=== PATIENT | male | born 1955 | race Caucasian/White ===

== ENCOUNTER 2016-07-09 12:10 | Inpatient (IN) | payer OTHER ==
[2016-07-09 12:25] VITALS: BMI 28.5
--- NOTE | 2016-07-09 15:23 | HP ---
Admission [facility] Chief Complaint: I need to go to rehab before my drinking becomes an addiction. Allergies/Adverse Reactions: Allergies Allergy/AdvReac Type Severity Reaction Status Date / Time No Known Allergies Allergy Verified 07/09/16 13:00 History of Present Illness: pt is a 60yr old male with a history of alcohol abuse seeking rehab for tx. pt is receiving Epclusa for hep c tx. pt on a mmtp program last dose today with 65mg verification done. Exam Limitations: No Limitations - Ebola screening Have you traveled outside of the country in the last 21 days: No Have you had contact with anyone from an Ebola affected area: No Have you been sick,other than usual withdrawal symptoms: No Do you have a fever: No - Review of Systems Constitutional: No Symptoms Reported EENT: reports: No Symptoms Reported Respiratory: reports: No Symptoms reported Cardiac: reports: No Symptoms Reported GI: reports: No Symptoms Reported : reports: No Symptoms Reported Musculoskeletal: reports: No Symptoms Reported Integumentary: reports: No Symptoms Reported Neuro: reports: No Symptoms reported Endocrine: reports: No Symptoms Reported Hematology: reports: No Symptoms Reported Psychiatric: reports: Judgement Intact, Mood/Affect Appropiate, Orientated x3, Agitated, Anxious Other Systems: Reviewed and Negative Patient History - Patient Medical History Hx Anemia: No Hx Asthma: No Hx Chronic Obstructive Pulmonary Disease (COPD): No Hx Cancer: No Hx Cardiac Disorders: No Hx Congestive Heart Failure: No Hx Hypertension: No Hx Hypercholesterolemia: No Hx Pacemaker: No HX Cerebrovascular Accident: No Hx Seizures: No Hx Dementia: No Hx Diabetes: No Hx Gastrointestinal Disorders: No Hx Liver Disease: No Hx Genitourinary Disorders: No Hx Sexually Transmitted Disorders: No Hx Renal Disease (ESRD): No Hx Thyroid Disease: No Hx Human Immunodeficiency Virus (HIV): No (negative) Hx Hepatitis C: Yes (currently on treatment.) Hx Depression: Yes Hx Suicide Attempt: No (denies) Hx Bipolar Disorder: Yes Hx Schizophrenia: No - Patient Surgical History Past Surgical History: Yes Hx Orthopedic Surgery: Yes (40yr ago torn a shoulder) - PPD History Previous Implant?: Yes Documented Results: Negative w/o proof PPD to be Administered?: Yes - Reproductive History Patient is a Female of Child Bearing Age (11 -55 yrs old): No - Smoking Cessation Smoking history: Current every day smoker Have you smoked in the past 12 months: Yes Aproximately how many cigarettes per day: 3 Hx Chewing Tobacco Use: No Initiated information on smoking cessation: Yes 'Breaking Loose' booklet given: 07/09/16 - Substance & Tx. History Hx Alcohol Use: Yes Hx Substance Use: No Substance Use Type: Alcohol - Substances Abused Alcohol Route: Oral Frequency: 1-2 times per week Amount used: couple of beers Age of first use: 18 Date of Last Use: 06/13/16 Family Disease History - Family Disease History Family History: Denies Admission Physical Exam [facility] - Vital Signs Vital Signs: Vital Signs - 24 hr 07/09/16 12:18 Temperature 97.8 F Pulse Rate 68 Respiratory 18 Rate Blood Pressure 131/80 - Physical General Appearance: Yes: Within Normal Limits, Appropriately Dressed HEENTM: Yes: Normal Voice Respiratory: Yes: Lungs Clear, Normal Breath Sounds, No Respiratory Distress Neck: Yes: No masses,lesions,Nodules Breast: Yes: Within Normal Limits Cardiology: Yes: Regular Rhythm, Regular Rate, S1, S2 Abdominal: Yes: Normal Bowel Sounds, Non Tender, Soft Genitourinary: Yes: Within Normal Limits Back: Yes: Normal Inspection Musculoskeletal: Yes: full range of Motion Extremities: Yes: Normal Capillary Refill, Non-Tender, Tremors Neurological: Yes: Fully Oriented, Alert, Normal Response Integumentary: Yes: Normal Color Lymphatic: Yes: Within Normal Limits - Diagnostic (1) Alcohol abuse Current Visit: Yes Status: Chronic (2) Cocaine dependence Current Visit: Yes Status: Chronic Qualifiers: Substance use status: uncomplicated Qualified Code(s): F14.20 - Cocaine dependence, uncomplicated (3) Hepatitis C Current Visit: Yes Status: Chronic Qualifiers: Viral hepatitis chronicity: chronic Hepatic coma status: without hepatic coma Qualified Code(s): B18.2 - Chronic viral hepatitis C (4) Methadone maintenance therapy patient Current Visit: Yes Status: Chronic Comment: received his last dose of methadone today. verification done. Cleared for Admission [facility] - Detox or Rehab [facility] Level of Care: Medically Managed Claeared for Rehab Admission: Yes [facility] Breath Alcohol Content Breath Alcohol Content: 0 Urine Drug Screen - Results Drug Screen Negative: No Urine Drug Screen Results: TRACEY-Cocaine, BZO-Benzodiazepines, MTD-Methadone, TCA- Tricyclic Antidepress
[2016-07-09] MEDS ORDERED: MAGNESIUM HYDROX 2400MG/30ML ORAL SUSPENSION 30 ML CUP PO PRN (15:31)
[2016-07-09] MEDS ORDERED: diphenhydrAMINE HCL 50 MG CAPSULE PO PRN (15:31)
[2016-07-09] MEDS ORDERED: P-EPHED 60MG/TRIPROLIDI 2.5MG TABLET PO PRN (15:31)
[2016-07-09] MEDS ORDERED: MENTHOL/PHENOL 1 EACH UD MM PRN (15:31)
[2016-07-09] MEDS ORDERED: LOPERAMIDE HCL 2 MG CAPSULE PO PRN (15:31)
[2016-07-09] MEDS ORDERED: MAG HYDROX/AL HYDROX/SIMETH 30 ML UNIT-DOSE CUP PO PRN (15:31)
[2016-07-09] MEDS ORDERED: MAGNESIUM CITRATE 300 ML BOTTLE PO PRN (15:31)
[2016-07-09] MEDS ORDERED: guaiFENesin/D-METHORPHAN HB 10 ML UNIT-DOSE CUPS PO PRN (15:31)
[2016-07-09] MEDS ORDERED: NICOTINE POLACRILEX 4 MG GUM BC PRN (15:31)
[2016-07-09] MEDS ORDERED: hydrOXYzine PAMOATE 50 MG CAPSULE (FP) PO PRN (15:31)
[2016-07-09 19:10] LABS: MCH 28.3 pg (25.7-33.7); MCHC 33.2 g/dl (32.0-35.9); MEAN CELL VOLUME 85.4 fl (80-96); MEAN PLT VOLUME 8.9 fl (7.5-11.1); PLATELET COUNT 127 K/MM3 (134-434); RDW 14.4 % (11.9-15.9); WHITE BLOOD COUNT 7.7 K/mm3 (4.0-10.0)
[2016-07-09 19:20] LABS: URINE APPEARANCE CLEAR; URINE BILIRUBIN NEGATIVE (NEGATIVE); URINE BLOOD NEGATIVE (NEGATIVE); URINE COLOR YELLOW; URINE GLUCOSE (UA) NEGATIVE (NEGATIVE); URINE KETONE NEGATIVE (NEGATIVE); URINE LEUK ESTERASE NEGATIVE (NEGATIVE); URINE NITRITE NEGATIVE (NEGATIVE); URINE PROTEIN NEGATIVE (NEGATIVE); URINE UROBILINOGEN 2.0 E.U/dl E.U./dl (0.2-1.0)
[2016-07-09 19:22] LABS: ALBUMIN 3.8 g/dl (3.4-5.0); ALK PHOS 114 U/L (45-117); ANION GAP 4 (8-16); BILIRUBIN,TOTAL 0.4 mg/dL (0.2-1.0); CALCIUM 8.9 mg/dL (8.5-10.1); CO2 33 mmol/L (21-32); CREATININE 0.8 mg/dL (0.7-1.3); GLUCOSE,RANDOM 78 mg/dL (74-106); SGOT/AST 52 U/L (15-37); SGPT/ALT 44 U/L (12-78); TOT PROT 8.5 g/dl (6.4-8.2)
[2016-07-09] MEDS: hydrOXYzine HCL 25 MG TABLET (FP) PO SCH (21:39)
[2016-07-09] MEDS: THIAMINE HCL 100 MG TABLET (FP) PO SCH (21:39)
[2016-07-09] MEDS: PATIENT'S OWN MEDICATION (NON-FORMULARY) (Sofosbuvir/Velpatasvir [Epclusa 400 Mg-100 Mg Ta PO SCH (21:39)
[2016-07-10] MEDS ORDERED: METHADONE HCL 5 MG TABLET ONE (03:11)
[2016-07-10] MEDS ORDERED: METHADONE HCL 10 MG TABLET ONE (03:11)
[2016-07-10] MEDS ORDERED: METHADONE HCL 40 MG DISPERSABLE TABLET ONE (03:11)
[2016-07-10] MEDS ORDERED: METHADONE HCL 10 MG TABLET PO SCH (06:00)
[2016-07-10] MEDS: METHADONE 40 MG, METHADONE 20 MG, METHADONE 5 MG PO SCH (06:10)
[2016-07-10] MEDS: PRENATAL VITAMINS W/ FOLIC ACID TABLET (FP) PO SCH (09:59)
[2016-07-10] MEDS: hydrOXYzine HCL 25 MG TABLET (FP) PO SCH ×2 (09:59→21:29)
[2016-07-10] MEDS: NICOTINE 21 MG/24 HOURS TOPICAL PATCH TD SCH (10:01)
[2016-07-10] MEDS ORDERED: GABAPENTIN 300 MG CAPSULE (FP) PO SCH (12:00)
--- NOTE | 2016-07-10 13:53 | HP ---
Psychiatrist Admission - Data Date of interview: 07/10/16 Admission source: [facility] Identifying data: This is the first 5n inpatient rehabilitation admission for this 60 year old single male afther of of one 27 year old, who is unemployed and currently homeless. Medical History: Liver Cirrhosis, smokes cigarettes 3-4 a day, on MMTP 65 mg/ daily. Psychiatric History: Patient reports has been feeling depressed, lonely since he his mother and his mother's partner 2 months ago, he was recommended at his methadone clinic to see a psychiatrist, after evaluation patient reports he was started Gabapentin 300 mg po tid, Atarax 25 mg po bid, Lexapro 10 mg hs and some medications for insomnia he can't recall, reports no history of psychiatic hospitalizations, after his loss he became very depressed and hopeless. Physical/Sexual Abuse/Trauma History: Denies history of sexual, physical and verbal abuse. Vital Signs: Vital Signs - 24 hr 07/10/16 07/10/16 07/10/16 00:33 03:30 06:59 Temperature 97.8 F Pulse Rate 58 L Respiratory 18 18 18 Rate Blood Pressure 123/74 Allergies/Adverse Reactions: Allergies Allergy/AdvReac Type Severity Reaction Status Date / Time No Known Allergies Allergy Verified 07/09/16 13:00 Date of last physical exam: 07/09/16 Concur with the findings of this exam: Yes - Substance Abuse/Tx History Hx Alcohol Use: Yes (a couple of beers 2-3 times a week) Hx Substance Use: Yes Substance Use Type: Cocaine ($20 daily) Hx Substance Use Treatment: Yes - Admission Criteria Previous failed treatment: Yes Poor recovery environment: Yes Comorbidities: Yes Lacks judgement: Yes Mental Status Exam - Mental Status Exam Alert and Oriented to: Time, Place, Person Cognitive Function: Grossly Intact Patient Appearance: Well Groomed Mood: Depressed, Sad Affect: Appropriate, Mood Congruent Patient Behavior: Crying Speech Pattern: Clear Voice Loudness: Normal Thought Process: Goal Oriented Thought Disorder: Not Present Hallucinations: Denies Suicidal Ideation: Denies Homicidal Ideation: Denies Insight/Judgement: Fair Sleep: Poorly, Difficulty falling asleep Appetite: Fair Muscle strength/Tone: Normal Gait/Station: Normal Psychiatric Findings - Problem List ([place] 1, 2,3) (1) Alcohol abuse Current Visit: Yes Status: Chronic (2) Cocaine dependence Current Visit: Yes Status: Chronic Qualifiers: Substance use status: uncomplicated Qualified Code(s): F14.20 - Cocaine dependence, uncomplicated (3) Methadone maintenance therapy patient Current Visit: Yes Status: Chronic Comment: received his last dose of methadone today. verification done. (4) Bereavement Current Visit: Yes Status: Acute (5) Depressive disorder Current Visit: Yes Status: Acute - Initial Treatment Plan Initial Treatment Plan: Will contiue Gabapentin and Lexapro, will add Belsorma for insomnia(sie-effects/benefits discossed), monitor progress as needed.
--- NOTE | 2016-07-10 15:38 | EKG ---
Test Reason : Blood Pressure : / mmHG Vent. Rate : 051 BPM Atrial Rate : 051 BPM P-R Int : 158 ms QRS Dur : 092 ms QT Int : 474 ms P-R-T Axes : 056 058 063 degrees QTc Int : 436 ms SINUS BRADYCARDIA OTHERWISE NORMAL ECG NO PREVIOUS ECGS AVAILABLE Confirmed by SEEMA PERRIN, SEGUN ([id number]) on 07/10/2016 3:37:48 PM Referred By: Nora Pichardo Confirmed By:SEGUN STEPHENSON MD
[2016-07-10] MEDS: THIAMINE HCL 100 MG TABLET (FP) PO SCH (21:28)
[2016-07-10] MEDS: PATIENT'S OWN MEDICATION (NON-FORMULARY) (Sofosbuvir/Velpatasvir [Epclusa 400 Mg-100 Mg Ta PO SCH (21:29)
[2016-07-10] MEDS: SUVOREXANT 10 MG TABLET PO SCH (21:31)
[2016-07-10] MEDS: GABAPENTIN 300 MG CAPSULE (FP) PO SCH (21:32)
[2016-07-11] MEDS ORDERED: METHADONE HCL 5 MG TABLET ONE (03:09)
[2016-07-11] MEDS ORDERED: METHADONE HCL 10 MG TABLET ONE (03:09)
[2016-07-11] MEDS ORDERED: METHADONE HCL 40 MG DISPERSABLE TABLET ONE (03:10)
[2016-07-11] MEDS: GABAPENTIN 300 MG CAPSULE (FP) PO SCH ×3 (06:15→21:27)
[2016-07-11] MEDS: METHADONE 40 MG, METHADONE 20 MG, METHADONE 5 MG PO SCH (06:15)
[2016-07-11] MEDS: ESCITALOPRAM OXALATE 10 MG TABLET (FP) PO SCH (09:50)
[2016-07-11] MEDS: PRENATAL VITAMINS W/ FOLIC ACID TABLET (FP) PO SCH (09:50)
[2016-07-11] MEDS: hydrOXYzine HCL 25 MG TABLET (FP) PO SCH ×2 (09:50→21:27)
[2016-07-11] MEDS: NICOTINE 21 MG/24 HOURS TOPICAL PATCH TD SCH (09:51)
[2016-07-11] MEDS: ACETAMINOPHEN 325 MG TABLET (FP) PO PRN (17:14)
[2016-07-11] MEDS: SUVOREXANT 10 MG TABLET PO SCH (21:27)
[2016-07-11] MEDS: PATIENT'S OWN MEDICATION (NON-FORMULARY) (Sofosbuvir/Velpatasvir [Epclusa 400 Mg-100 Mg Ta PO SCH (21:27)
[2016-07-11] MEDS: THIAMINE HCL 100 MG TABLET (FP) PO SCH (21:27)
[2016-07-12] MEDS ORDERED: METHADONE HCL 5 MG TABLET ONE (03:27)
[2016-07-12] MEDS ORDERED: METHADONE HCL 40 MG DISPERSABLE TABLET ONE (03:28)
[2016-07-12] MEDS ORDERED: METHADONE HCL 10 MG TABLET ONE (03:28)
[2016-07-12] MEDS: GABAPENTIN 300 MG CAPSULE (FP) PO SCH ×3 (06:37→21:30)
[2016-07-12] MEDS: METHADONE 40 MG, METHADONE 20 MG, METHADONE 5 MG PO SCH (06:37)
[2016-07-12] MEDS: NICOTINE 21 MG/24 HOURS TOPICAL PATCH TD SCH (10:09)
[2016-07-12] MEDS: PRENATAL VITAMINS W/ FOLIC ACID TABLET (FP) PO SCH (10:09)
[2016-07-12] MEDS: ESCITALOPRAM OXALATE 10 MG TABLET (FP) PO SCH (10:10)
[2016-07-12] MEDS: hydrOXYzine HCL 25 MG TABLET (FP) PO SCH ×2 (10:10→21:30)
[2016-07-12] MEDS: ACETAMINOPHEN 325 MG TABLET (FP) PO PRN (15:41)
[2016-07-12] MEDS: PATIENT'S OWN MEDICATION (NON-FORMULARY) (Sofosbuvir/Velpatasvir [Epclusa 400 Mg-100 Mg Ta PO SCH (21:30)
[2016-07-12] MEDS: SUVOREXANT 10 MG TABLET PO SCH (21:31)
[2016-07-12] MEDS: THIAMINE HCL 100 MG TABLET (FP) PO SCH (21:33)
[2016-07-13] MEDS ORDERED: METHADONE HCL 10 MG TABLET ONE (04:46)
[2016-07-13] MEDS ORDERED: METHADONE HCL 5 MG TABLET ONE (04:46)
[2016-07-13] MEDS ORDERED: METHADONE HCL 40 MG DISPERSABLE TABLET ONE (04:47)
[2016-07-13] MEDS: METHADONE 40 MG, METHADONE 20 MG, METHADONE 5 MG PO SCH (05:43)
[2016-07-13] MEDS: GABAPENTIN 300 MG CAPSULE (FP) PO SCH ×3 (05:44→21:13)
[2016-07-13] MEDS: ACETAMINOPHEN 325 MG TABLET (FP) PO PRN (05:44)
[2016-07-13] MEDS: hydrOXYzine HCL 25 MG TABLET (FP) PO SCH ×2 (10:39→21:13)
[2016-07-13] MEDS: NICOTINE 21 MG/24 HOURS TOPICAL PATCH TD SCH (10:39)
[2016-07-13] MEDS: PRENATAL VITAMINS W/ FOLIC ACID TABLET (FP) PO SCH (10:39)
[2016-07-13] MEDS: ESCITALOPRAM OXALATE 10 MG TABLET (FP) PO SCH (10:39)
[2016-07-13] MEDS: THIAMINE HCL 100 MG TABLET (FP) PO SCH (21:13)
[2016-07-13] MEDS: PATIENT'S OWN MEDICATION (NON-FORMULARY) (Sofosbuvir/Velpatasvir [Epclusa 400 Mg-100 Mg Ta PO SCH (21:13)
[2016-07-13] MEDS: SUVOREXANT 10 MG TABLET PO SCH (21:14)
[2016-07-14] MEDS ORDERED: METHADONE HCL 5 MG TABLET ONE (03:08)
[2016-07-14] MEDS ORDERED: METHADONE HCL 10 MG TABLET ONE (03:09)
[2016-07-14] MEDS ORDERED: METHADONE HCL 40 MG DISPERSABLE TABLET ONE (03:09)
[2016-07-14] MEDS: METHADONE 40 MG, METHADONE 20 MG, METHADONE 5 MG PO SCH (06:01)
[2016-07-14] MEDS: GABAPENTIN 300 MG CAPSULE (FP) PO SCH ×3 (06:03→21:14)
[2016-07-14] MEDS: ESCITALOPRAM OXALATE 10 MG TABLET (FP) PO SCH (10:00)
[2016-07-14] MEDS: PRENATAL VITAMINS W/ FOLIC ACID TABLET (FP) PO SCH (10:00)
[2016-07-14] MEDS: hydrOXYzine HCL 25 MG TABLET (FP) PO SCH ×2 (10:00→21:14)
[2016-07-14] MEDS: NICOTINE 21 MG/24 HOURS TOPICAL PATCH TD SCH (10:00)
[2016-07-14] MEDS: ACETAMINOPHEN 325 MG TABLET (FP) PO PRN (12:31)
--- NOTE | 2016-07-14 13:13 | PN ---
Psychiatric Progress Note Vital Signs: Vital Signs Period Temp Pulse Resp BP Sys/Dee Pulse Ox Last 24 Hr 98.1 F 55 18-18 125/87 Date of Session: 07/21/16 Chief Complaint:: insomnia HPI: Patient is addressing alcohol abuse, cocaine dependence comorbid Bereavement, Depression. Current Medications: Active Medications Generic Name Dose Route Start Last Admin Trade Name Freq PRN Reason Stop Dose Admin Acetaminophen 650 mg 07/09/16 15:31 07/14/16 12:31 Tylenol - PO 650 mg Q4H PRN Administration PAIN Al Hydroxide/Mg Hydroxide 30 ml 07/09/16 15:31 Mylanta Oral Suspension - PO Q6H PRN DYSPEPSIA Escitalopram Oxalate 10 mg 07/11/16 10:00 07/14/16 10:00 Lexapro - PO 10 mg DAILY JESS Administration Eucalyptus/Menthol/Phenol/Sorbitol 1 each 07/09/16 15:31 Cepastat Lozenge - MM Q4H PRN SORE THROAT Gabapentin 300 mg 07/10/16 22:00 07/14/16 06:03 Neurontin - PO Not Given TID JESS Guaifenesin 10 ml 07/09/16 15:31 Robitussin Dm - PO Q6H PRN COUGH Hydroxyzine HCl 25 mg 07/09/16 22:00 07/14/16 10:00 Atarax - PO 25 mg BID JESS Administration Ibuprofen 400 mg 07/09/16 15:31 Motrin - PO Q6H PRN SEVERE PAIN Loperamide HCl 4 mg 07/09/16 15:31 Imodium - PO Q6H PRN DIARRHEA Magnesium Citrate 300 ml 07/09/16 15:31 Citroma - PO Q48H PRN CONSTIPATION Magnesium Hydroxide 30 ml 07/09/16 15:31 Milk Of Magnesia - PO DAILY PRN CONSTIPATION Methadone HCl 40 mg/ Methadone 65 mg 07/10/16 06:00 07/14/16 06:01 HCl 20 mg/ Methadone HCl 5 mg PO 65 mg DAILY@0600 JESS Administration Nicotine 21 mg 07/10/16 10:00 07/14/16 10:00 Nicoderm Patch - TD Not Given DAILY JESS Nicotine Polacrilex 4 mg 07/09/16 15:31 Nicorette Gum - BC Q2H PRN NICOTINE REPLACEMENT RX Non-Formulary Medication 400 mg 07/09/16 22:00 03/05/17 21:13 Sofosbuvir/Velpatasvir [Epclusa 400 Mg-100 Mg Tablet] PO 400 mg HS JESS Administration Multivit/Folic Acid/Iron 1 tab 07/10/16 10:00 07/14/16 10:00 Vitamins (Sjr) - PO Not Given DAILY JESS Pseudoephedrine/Triprolidine 1 combo 07/09/16 15:31 Actifed - PO TID PRN NASAL CONGESTION Quetiapine Fumarate 50 mg 07/14/16 22:00 Seroquel - PO HS JESS Thiamine HCl 100 mg 07/09/16 22:00 07/13/16 21:13 Vitamin B1 - PO 100 mg HS JESS Administration Medication(s) Change(s): increase Seroquel 50 mg po hs. Current Side Effect: No Lab tests ordered: No Lab tests reviewed: Yes Provider note:: Patient adjusted well to the unit, he was seen today, he mainly spoke about his losses, still very emotional, processed with the patient, supportive therapy has bee provided, he c/o insomnia and unrestful nights, sleep is interrupted, fragmented, states that the next day he is more anxious and fatiqued, reviwed medications with the patient will increase Seroquel 50 mg p hs, continue to monitor progress. Total face to face time:: 35 Mental Status Exam - Mental Status Exam Alert and Oriented to: Time, Place, Person Cognitive Function: Grossly Intact Patient Appearance: Well Groomed Mood: Sad, Anxious Affect: Mood Congruent Patient Behavior: Appropriate (tearful when talks about his mother), Cooperative Speech Pattern: Clear, Appropriate Voice Loudness: Normal Thought Process: Intact, Goal Oriented Thought Disorder: Not Present Hallucinations: Denies Suicidal Ideation: Denies Homicidal Ideation: Denies Insight/Judgement: Fair Sleep: Poorly, Difficulty falling asleep Appetite: Fair Muscle strength/Tone: Normal Gait/Station: Normal Psychiatric Treatment Plan - Problem List (1) Alcohol abuse Current Visit: Yes (2) Cocaine dependence Current Visit: Yes Qualifiers: Substance use status: uncomplicated Qualified Code(s): F14.20 - Cocaine dependence, uncomplicated (3) Methadone maintenance therapy patient Current Visit: Yes Comment: received his last dose of methadone today. verification done. (4) Bereavement Current Visit: Yes (5) Depressive disorder Current Visit: Yes
[2016-07-14] MEDS: THIAMINE HCL 100 MG TABLET (FP) PO SCH (21:14)
[2016-07-14] MEDS: PATIENT'S OWN MEDICATION (NON-FORMULARY) (Sofosbuvir/Velpatasvir [Epclusa 400 Mg-100 Mg Ta PO SCH (21:15)
[2016-07-14] MEDS ORDERED: QUEtiapine FUMARATE 50 MG TABLET PO SCH (22:00)
[2016-07-15] MEDS ORDERED: METHADONE HCL 5 MG TABLET ONE (03:07)
[2016-07-15] MEDS ORDERED: METHADONE HCL 10 MG TABLET ONE (03:07)
[2016-07-15] MEDS ORDERED: METHADONE HCL 40 MG DISPERSABLE TABLET ONE (03:07)
[2016-07-15] MEDS: METHADONE 40 MG, METHADONE 20 MG, METHADONE 5 MG PO SCH (06:22)
[2016-07-15] MEDS: GABAPENTIN 300 MG CAPSULE (FP) PO SCH ×3 (06:22→21:38)
[2016-07-15] MEDS: IBUPROFEN 400 MG TABLET (FP) PO PRN (08:29)
[2016-07-15] MEDS: hydrOXYzine HCL 25 MG TABLET (FP) PO SCH ×2 (10:02→21:38)
[2016-07-15] MEDS: ESCITALOPRAM OXALATE 10 MG TABLET (FP) PO SCH (10:02)
[2016-07-15] MEDS: NICOTINE 21 MG/24 HOURS TOPICAL PATCH TD SCH (10:02)
[2016-07-15] MEDS: PRENATAL VITAMINS W/ FOLIC ACID TABLET (FP) PO SCH (10:02)
[2016-07-15] MEDS ORDERED: COLLOIDAL OATMEAL 1 BAR EACH TP PRN (12:59)
--- NOTE | 2016-07-15 15:34 | PN ---
S Progress Note Note: patient c/o insomnia, mood swings will increase Seroqiuel 100 mg po hs, continue to monitor progress.
[2016-07-15] MEDS: THIAMINE HCL 100 MG TABLET (FP) PO SCH (21:38)
[2016-07-15] MEDS: PATIENT'S OWN MEDICATION (NON-FORMULARY) (Sofosbuvir/Velpatasvir [Epclusa 400 Mg-100 Mg Ta PO SCH (21:38)
[2016-07-15] MEDS: QUEtiapine FUMARATE 100 MG TABLET (FP) PO SCH (21:41)
[2016-07-15] MEDS: TETRAHYDROZOLINE HCL 1 DROP DROPS OU PRN (21:42)
[2016-07-16] MEDS ORDERED: METHADONE HCL 5 MG TABLET ONE (03:25)
[2016-07-16] MEDS ORDERED: METHADONE HCL 40 MG DISPERSABLE TABLET ONE (03:25)
[2016-07-16] MEDS ORDERED: METHADONE HCL 10 MG TABLET ONE (03:25)
[2016-07-16] MEDS: METHADONE 40 MG, METHADONE 20 MG, METHADONE 5 MG PO SCH (06:30)
[2016-07-16] MEDS: GABAPENTIN 300 MG CAPSULE (FP) PO SCH ×3 (06:31→21:03)
[2016-07-16] MEDS: TETRAHYDROZOLINE HCL 1 DROP DROPS OU PRN ×2 (07:31→10:16)
[2016-07-16] MEDS: NICOTINE 21 MG/24 HOURS TOPICAL PATCH TD SCH (10:15)
[2016-07-16] MEDS: hydrOXYzine HCL 25 MG TABLET (FP) PO SCH ×2 (10:15→21:03)
[2016-07-16] MEDS: PRENATAL VITAMINS W/ FOLIC ACID TABLET (FP) PO SCH (10:15)
[2016-07-16] MEDS: ESCITALOPRAM OXALATE 10 MG TABLET (FP) PO SCH (10:15)
[2016-07-16] MEDS: ACETAMINOPHEN 325 MG TABLET (FP) PO PRN (13:08)
[2016-07-16] MEDS: THIAMINE HCL 100 MG TABLET (FP) PO SCH (21:03)
[2016-07-16] MEDS: QUEtiapine FUMARATE 100 MG TABLET (FP) PO SCH (21:03)
[2016-07-16] MEDS: PATIENT'S OWN MEDICATION (NON-FORMULARY) (Sofosbuvir/Velpatasvir [Epclusa 400 Mg-100 Mg Ta PO SCH (21:04)
[2016-07-17] MEDS ORDERED: METHADONE HCL 10 MG TABLET ONE (04:58)
[2016-07-17] MEDS ORDERED: METHADONE HCL 5 MG TABLET ONE (04:58)
[2016-07-17] MEDS ORDERED: METHADONE HCL 40 MG DISPERSABLE TABLET ONE (04:59)
[2016-07-17] MEDS: GABAPENTIN 300 MG CAPSULE (FP) PO SCH ×3 (05:58→21:07)
[2016-07-17] MEDS: METHADONE 40 MG, METHADONE 20 MG, METHADONE 5 MG PO SCH (05:58)
[2016-07-17] MEDS: TETRAHYDROZOLINE HCL 1 DROP DROPS OU PRN ×3 (06:02→21:07)
[2016-07-17] MEDS: ESCITALOPRAM OXALATE 10 MG TABLET (FP) PO SCH (10:18)
[2016-07-17] MEDS: NICOTINE 21 MG/24 HOURS TOPICAL PATCH TD SCH (10:18)
[2016-07-17] MEDS: PRENATAL VITAMINS W/ FOLIC ACID TABLET (FP) PO SCH (10:19)
[2016-07-17] MEDS: PATIENT'S OWN MEDICATION (NON-FORMULARY) (Sofosbuvir/Velpatasvir [Epclusa 400 Mg-100 Mg Ta PO SCH (21:07)
[2016-07-17] MEDS: MIRTAZAPINE 15 MG TABLET (FP) PO SCH (21:07)
[2016-07-17] MEDS: THIAMINE HCL 100 MG TABLET (FP) PO SCH (21:07)
[2016-07-18] MEDS ORDERED: METHADONE HCL 5 MG TABLET ONE (02:58)
[2016-07-18] MEDS ORDERED: METHADONE HCL 10 MG TABLET ONE (02:59)
[2016-07-18] MEDS ORDERED: METHADONE HCL 40 MG DISPERSABLE TABLET ONE (02:59)
[2016-07-18] MEDS: GABAPENTIN 300 MG CAPSULE (FP) PO SCH ×3 (05:44→21:03)
[2016-07-18] MEDS: METHADONE 40 MG, METHADONE 20 MG, METHADONE 5 MG PO SCH (05:44)
[2016-07-18] MEDS: PRENATAL VITAMINS W/ FOLIC ACID TABLET (FP) PO SCH (10:27)
[2016-07-18] MEDS: ESCITALOPRAM OXALATE 10 MG TABLET (FP) PO SCH (10:27)
[2016-07-18] MEDS: NICOTINE 21 MG/24 HOURS TOPICAL PATCH TD SCH (10:27)
[2016-07-18] MEDS: TETRAHYDROZOLINE HCL 1 DROP DROPS OU PRN ×2 (10:29→21:04)
[2016-07-18] MEDS: PATIENT'S OWN MEDICATION (NON-FORMULARY) (Sofosbuvir/Velpatasvir [Epclusa 400 Mg-100 Mg Ta PO SCH (21:03)
[2016-07-18] MEDS: MIRTAZAPINE 15 MG TABLET (FP) PO SCH (21:03)
[2016-07-18] MEDS: THIAMINE HCL 100 MG TABLET (FP) PO SCH (21:03)
[2016-07-19] MEDS ORDERED: METHADONE HCL 10 MG TABLET ONE (03:52)
[2016-07-19] MEDS ORDERED: METHADONE HCL 40 MG DISPERSABLE TABLET ONE (03:52)
[2016-07-19] MEDS ORDERED: METHADONE HCL 5 MG TABLET ONE (03:52)
[2016-07-19] MEDS: GABAPENTIN 300 MG CAPSULE (FP) PO SCH ×3 (05:54→21:16)
[2016-07-19] MEDS: METHADONE 40 MG, METHADONE 20 MG, METHADONE 5 MG PO SCH (05:54)
[2016-07-19] MEDS: ESCITALOPRAM OXALATE 10 MG TABLET (FP) PO SCH (10:00)
[2016-07-19] MEDS: PRENATAL VITAMINS W/ FOLIC ACID TABLET (FP) PO SCH (10:01)
[2016-07-19] MEDS: NICOTINE 21 MG/24 HOURS TOPICAL PATCH TD SCH (10:01)
[2016-07-19] MEDS: TETRAHYDROZOLINE HCL 1 DROP DROPS OU PRN (10:01)
[2016-07-19] MEDS: MIRTAZAPINE 15 MG TABLET (FP) PO SCH (21:16)
[2016-07-19] MEDS: THIAMINE HCL 100 MG TABLET (FP) PO SCH (21:16)
[2016-07-20] MEDS ORDERED: METHADONE HCL 5 MG TABLET ONE (04:12)
[2016-07-20] MEDS ORDERED: METHADONE HCL 10 MG TABLET ONE (04:13)
[2016-07-20] MEDS ORDERED: METHADONE HCL 40 MG DISPERSABLE TABLET ONE (04:13)
[2016-07-20] MEDS: METHADONE 40 MG, METHADONE 20 MG, METHADONE 5 MG PO SCH (06:11)
[2016-07-20] MEDS: GABAPENTIN 300 MG CAPSULE (FP) PO SCH ×3 (06:11→21:08)
[2016-07-20] MEDS: ESCITALOPRAM OXALATE 10 MG TABLET (FP) PO SCH (10:04)
[2016-07-20] MEDS: TETRAHYDROZOLINE HCL 1 DROP DROPS OU PRN (10:04)
[2016-07-20] MEDS: NICOTINE 21 MG/24 HOURS TOPICAL PATCH TD SCH (10:04)
[2016-07-20] MEDS: PRENATAL VITAMINS W/ FOLIC ACID TABLET (FP) PO SCH (10:04)
[2016-07-20] MEDS: THIAMINE HCL 100 MG TABLET (FP) PO SCH (21:08)
[2016-07-20] MEDS: MIRTAZAPINE 15 MG TABLET (FP) PO SCH (21:08)
[2016-07-21] MEDS ORDERED: METHADONE HCL 10 MG TABLET ONE (03:12)
[2016-07-21] MEDS ORDERED: METHADONE HCL 40 MG DISPERSABLE TABLET ONE (03:12)
[2016-07-21] MEDS ORDERED: METHADONE HCL 5 MG TABLET ONE (03:12)
[2016-07-21] MEDS: METHADONE 40 MG, METHADONE 20 MG, METHADONE 5 MG PO SCH (06:00)
[2016-07-21] MEDS: GABAPENTIN 300 MG CAPSULE (FP) PO SCH ×3 (06:00→22:00)
[2016-07-21] MEDS: PRENATAL VITAMINS W/ FOLIC ACID TABLET (FP) PO SCH (09:50)
[2016-07-21] MEDS: NICOTINE 21 MG/24 HOURS TOPICAL PATCH TD SCH (09:50)
[2016-07-21] MEDS: ESCITALOPRAM OXALATE 10 MG TABLET (FP) PO SCH (09:50)
[2016-07-21] MEDS: TETRAHYDROZOLINE HCL 1 DROP DROPS OU PRN (09:51)
--- NOTE | 2016-07-21 11:03 | PN ---
Psychiatric Progress Note Vital Signs: Vital Signs Period Temp Pulse Resp BP Sys/Dee Pulse Ox Last 24 Hr 97.8 F 61 18-18 139/88 Date of Session: 07/21/16 Chief Complaint:: "insomnia" HPI: Patient is addressing alcohol abuse, cocaine dependence comorbid Bereavement, Depression. ROS: PAtient reports he does not want to continue Seroquel, states he feels sedated in am and willing to continue the rest of his current medications, patient mainly spoke about his losses and identified his mother's as a reason for his recent relapse, processed feeling, he also expressed feeling guilty over his relapse. Main technique used in this session was emotional supports. Properties and indications of his current medications discussed, will d/c Seroquel. Continue to monitor progress. Current Medications: Active Medications Generic Name Dose Route Start Last Admin Trade Name Freq PRN Reason Stop Dose Admin Acetaminophen 650 mg 07/09/16 15:31 07/16/16 13:08 Tylenol - PO 650 mg Q4H PRN Administration PAIN Al Hydroxide/Mg Hydroxide 30 ml 07/09/16 15:31 Mylanta Oral Suspension - PO Q6H PRN DYSPEPSIA Colloidal Oatmeal 1 applic 07/15/16 12:59 07/16/16 06:32 Aveeno Soap - TP 1 pkt DAILY PRN Administration HYGEINE Escitalopram Oxalate 10 mg 07/11/16 10:00 07/21/16 09:50 Lexapro - PO 10 mg DAILY JESS Administration Eucalyptus/Menthol/Phenol/Sorbitol 1 each 07/09/16 15:31 Cepastat Lozenge - MM Q4H PRN SORE THROAT Gabapentin 300 mg 07/10/16 22:00 07/21/16 06:00 Neurontin - PO Not Given TID JESS Guaifenesin 10 ml 07/09/16 15:31 Robitussin Dm - PO Q6H PRN COUGH Ibuprofen 400 mg 07/09/16 15:31 07/15/16 08:29 Motrin - PO 400 mg Q6H PRN Administration SEVERE PAIN Loperamide HCl 4 mg 07/09/16 15:31 Imodium - PO Q6H PRN DIARRHEA Magnesium Citrate 300 ml 07/09/16 15:31 Citroma - PO Q48H PRN CONSTIPATION Magnesium Hydroxide 30 ml 07/09/16 15:31 Milk Of Magnesia - PO DAILY PRN CONSTIPATION Methadone HCl 40 mg/ Methadone 65 mg 07/17/16 06:00 07/21/16 06:00 HCl 20 mg/ Methadone HCl 5 mg PO 07/23/16 05:59 65 mg DAILY@0600 JESS Administration Mirtazapine 30 mg 07/21/16 10:52 Remeron - PO HS JESS Nicotine 21 mg 07/10/16 10:00 07/21/16 09:50 Nicoderm Patch - TD Not Given DAILY JESS Nicotine Polacrilex 4 mg 07/09/16 15:31 Nicorette Gum - BC Q2H PRN NICOTINE REPLACEMENT RX Multivit/Folic Acid/Iron 1 tab 07/10/16 10:00 07/21/16 09:50 Vitamins (Sjr) - PO Not Given DAILY JESS Pseudoephedrine/Triprolidine 1 combo 07/09/16 15:31 Actifed - PO TID PRN NASAL CONGESTION Tetrahydrozoline HCl 1 drop 07/15/16 12:59 07/21/16 09:51 Visine - OU 1 drop BID PRN Administration DRY SKIN Thiamine HCl 100 mg 07/09/16 22:00 07/20/16 21:08 Vitamin B1 - PO Not Given HS JESS Current Side Effect: No Lab tests ordered: No Lab tests reviewed: Yes Total face to face time:: 35 Mental Status Exam - Mental Status Exam Alert and Oriented to: Time, Place, Person Cognitive Function: Good Patient Appearance: Well Groomed Mood: Sad, Anxious Affect: Appropriate, Mood Congruent Patient Behavior: Appropriate, Cooperative Speech Pattern: Clear, Appropriate Voice Loudness: Normal Thought Process: Intact, Goal Oriented Thought Disorder: Not Present Hallucinations: Denies Suicidal Ideation: Denies Homicidal Ideation: Denies Insight/Judgement: Fair Sleep: Well Appetite: Good Muscle strength/Tone: Normal Gait/Station: Normal Psychiatric Treatment Plan - Problem List (1) Alcohol abuse Current Visit: Yes (2) Cocaine dependence Current Visit: Yes Qualifiers: Substance use status: uncomplicated Qualified Code(s): F14.20 - Cocaine dependence, uncomplicated (3) Methadone maintenance therapy patient Current Visit: Yes Comment: received his last dose of methadone today. verification done. (4) Bereavement Current Visit: Yes (5) Depressive disorder Current Visit: Yes
[2016-07-21] MEDS: ACETAMINOPHEN 325 MG TABLET (FP) PO PRN (12:13)
[2016-07-21] MEDS: IBUPROFEN 400 MG TABLET (FP) PO PRN (19:40)
[2016-07-21] MEDS: THIAMINE HCL 100 MG TABLET (FP) PO SCH (22:00)
[2016-07-21] MEDS: MIRTAZAPINE 30 MG TABLET (FP) PO SCH (22:00)
[2016-07-22] MEDS ORDERED: METHADONE HCL 10 MG TABLET ONE (03:09)
[2016-07-22] MEDS ORDERED: METHADONE HCL 5 MG TABLET ONE (03:09)
[2016-07-22] MEDS ORDERED: METHADONE HCL 40 MG DISPERSABLE TABLET ONE (03:10)
[2016-07-22] MEDS: METHADONE 40 MG, METHADONE 20 MG, METHADONE 5 MG PO SCH (06:29)
[2016-07-22] MEDS: GABAPENTIN 300 MG CAPSULE (FP) PO SCH ×3 (06:31→21:50)
[2016-07-22] MEDS: ESCITALOPRAM OXALATE 10 MG TABLET (FP) PO SCH (09:50)
[2016-07-22] MEDS: TETRAHYDROZOLINE HCL 1 DROP DROPS OU PRN (09:50)
[2016-07-22] MEDS: IBUPROFEN 400 MG TABLET (FP) PO PRN (09:51)
[2016-07-22] MEDS: PRENATAL VITAMINS W/ FOLIC ACID TABLET (FP) PO SCH (09:52)
[2016-07-22] MEDS: NICOTINE 21 MG/24 HOURS TOPICAL PATCH TD SCH (09:52)
[2016-07-22] MEDS: THIAMINE HCL 100 MG TABLET (FP) PO SCH (21:50)
[2016-07-22] MEDS: MIRTAZAPINE 30 MG TABLET (FP) PO SCH (21:50)
[2016-07-23] MEDS ORDERED: METHADONE HCL 5 MG TABLET ONE (04:47)
[2016-07-23] MEDS ORDERED: METHADONE HCL 40 MG DISPERSABLE TABLET ONE (04:48)
[2016-07-23] MEDS ORDERED: METHADONE HCL 10 MG TABLET ONE (04:48)
[2016-07-23] MEDS: METHADONE 40 MG, METHADONE 20 MG, METHADONE 5 MG PO SCH (05:44)
[2016-07-23] MEDS ORDERED: METHADONE HCL 10 MG TABLET PO SCH (06:00)
[2016-07-23] MEDS: GABAPENTIN 300 MG CAPSULE (FP) PO SCH ×3 (06:29→21:11)
[2016-07-23] MEDS: ESCITALOPRAM OXALATE 10 MG TABLET (FP) PO SCH (09:52)
[2016-07-23] MEDS: PRENATAL VITAMINS W/ FOLIC ACID TABLET (FP) PO SCH (09:52)
[2016-07-23] MEDS: NICOTINE 21 MG/24 HOURS TOPICAL PATCH TD SCH (09:52)
[2016-07-23] MEDS: IBUPROFEN 400 MG TABLET (FP) PO PRN (12:30)
--- NOTE | 2016-07-23 13:27 | PN ---
Psychiatric Progress Note Vital Signs: Vital Signs Period Temp Pulse Resp BP Sys/Dee Pulse Ox Last 24 Hr 98.0 F 68 18-18 147/99 Date of Session: 07/23/16 Chief Complaint:: insomnia HPI: Patient is addressing alcohol abuse, cocaine dependence comorbid Bereavement, Depression. ROS: WNL Current Medications: Active Medications Generic Name Dose Route Start Last Admin Trade Name Freq PRN Reason Stop Dose Admin Acetaminophen 650 mg 07/09/16 15:31 07/21/16 12:13 Tylenol - PO 650 mg Q4H PRN Administration PAIN Al Hydroxide/Mg Hydroxide 30 ml 07/09/16 15:31 Mylanta Oral Suspension - PO Q6H PRN DYSPEPSIA Colloidal Oatmeal 1 applic 07/15/16 12:59 07/16/16 06:32 Aveeno Soap - TP 1 pkt DAILY PRN Administration HYGEINE Escitalopram Oxalate 10 mg 07/11/16 10:00 07/23/16 09:52 Lexapro - PO 10 mg DAILY JESS Administration Eucalyptus/Menthol/Phenol/Sorbitol 1 each 07/09/16 15:31 Cepastat Lozenge - MM Q4H PRN SORE THROAT Gabapentin 300 mg 07/10/16 22:00 07/23/16 06:29 Neurontin - PO Not Given TID JESS Guaifenesin 10 ml 07/09/16 15:31 Robitussin Dm - PO Q6H PRN COUGH Ibuprofen 400 mg 07/09/16 15:31 07/23/16 12:30 Motrin - PO 400 mg Q6H PRN Administration SEVERE PAIN Loperamide HCl 4 mg 07/09/16 15:31 Imodium - PO Q6H PRN DIARRHEA Magnesium Citrate 300 ml 07/09/16 15:31 Citroma - PO Q48H PRN CONSTIPATION Magnesium Hydroxide 30 ml 07/09/16 15:31 Milk Of Magnesia - PO DAILY PRN CONSTIPATION Methadone HCl 40 mg/ Methadone 65 mg 07/23/16 06:00 07/23/16 05:44 HCl 20 mg/ Methadone HCl 5 mg PO 65 mg DAILY@0600 JESS Administration Nicotine 21 mg 07/10/16 10:00 07/23/16 09:52 Nicoderm Patch - TD Not Given DAILY JESS Nicotine Polacrilex 4 mg 07/09/16 15:31 Nicorette Gum - BC Q2H PRN NICOTINE REPLACEMENT RX Multivit/Folic Acid/Iron 1 tab 07/10/16 10:00 07/23/16 09:52 Vitamins (Sjr) - PO Not Given DAILY JESS Pseudoephedrine/Triprolidine 1 combo 07/09/16 15:31 Actifed - PO TID PRN NASAL CONGESTION Tetrahydrozoline HCl 1 drop 07/15/16 12:59 07/22/16 09:50 Visine - OU 1 drop BID PRN Administration DRY SKIN Thiamine HCl 100 mg 07/09/16 22:00 07/22/16 21:50 Vitamin B1 - PO Not Given HS EJSS Trazodone HCl 50 mg 07/23/16 22:00 Desyrel - PO HS JESS Medication(s) Change(s): d/c Remeron adde Trazodone 50 mg po hs Current Side Effect: No Lab tests ordered: No Lab tests reviewed: Yes Provider note:: Patient was seen today, he brought his psychiatrist telephone number and asked to contact , spoke with the doctor, who reported that patient was on Klonopin. Patient continues to c/o insomnia, discussed indicatios and propertiess of Trazodone, patient agreed to start, will start and monitor progress. Total face to face time:: 35 Mental Status Exam - Mental Status Exam Alert and Oriented to: Time, Place, Person Cognitive Function: Good Patient Appearance: Well Groomed Mood: Sad, Anxious Affect: Appropriate Patient Behavior: Appropriate, Cooperative Speech Pattern: Clear, Appropriate Voice Loudness: Normal Thought Process: Intact, Goal Oriented Thought Disorder: Not Present Hallucinations: None Suicidal Ideation: None Homicidal Ideation: None Insight/Judgement: Good Sleep: Poorly, Difficulty falling asleep Appetite: Good Muscle strength/Tone: Normal Gait/Station: Normal Psychiatric Treatment Plan - Problem List (1) Alcohol abuse Current Visit: Yes (2) Cocaine dependence Current Visit: Yes Qualifiers: Substance use status: uncomplicated Qualified Code(s): F14.20 - Cocaine dependence, uncomplicated (3) Methadone maintenance therapy patient Current Visit: Yes Comment: received his last dose of methadone today. verification done. (4) Bereavement Current Visit: Yes (5) Depressive disorder Current Visit: Yes (6) Insomnia Current Visit: Yes
[2016-07-23] MEDS: THIAMINE HCL 100 MG TABLET (FP) PO SCH (21:11)
[2016-07-23] MEDS ORDERED: traZODone HCL 50 MG TABLET (FP) PO SCH (22:00)
[2016-07-24] MEDS ORDERED: diphenhydrAMINE HCL 50 MG CAPSULE PO PRN (01:41)
[2016-07-24] MEDS ORDERED: METHADONE HCL 40 MG DISPERSABLE TABLET ONE (05:07)
[2016-07-24] MEDS ORDERED: METHADONE HCL 5 MG TABLET ONE (05:07)
[2016-07-24] MEDS ORDERED: METHADONE HCL 10 MG TABLET ONE (05:07)
[2016-07-24] MEDS: METHADONE 40 MG, METHADONE 20 MG, METHADONE 5 MG PO SCH (06:30)
[2016-07-24] MEDS: GABAPENTIN 300 MG CAPSULE (FP) PO SCH ×2 (06:41→13:30)
--- NOTE | 2016-07-24 09:34 | PN ---
[facility] Progress Note Note: patient c/o insomnia, reports Trazodone not affective, will d/c Trazodone, increase Benadryl 100 mg po hs and add Belsorma, continue to monitor progress.
[2016-07-24] MEDS: NICOTINE 21 MG/24 HOURS TOPICAL PATCH TD SCH (10:27)
[2016-07-24] MEDS: ESCITALOPRAM OXALATE 10 MG TABLET (FP) PO SCH (10:27)
[2016-07-24] MEDS: PRENATAL VITAMINS W/ FOLIC ACID TABLET (FP) PO SCH (10:27)
[2016-07-24] MEDS: diphenhydrAMINE HCL 50 MG CAPSULE PO SCH (20:06)
[2016-07-24] MEDS: THIAMINE HCL 100 MG TABLET (FP) PO SCH (22:13)
[2016-07-24] MEDS: SUVOREXANT 5 MG TABLET PO PRN (22:15)
[2016-07-25] MEDS ORDERED: METHADONE HCL 5 MG TABLET ONE (03:13)
[2016-07-25] MEDS ORDERED: METHADONE HCL 10 MG TABLET ONE (03:13)
[2016-07-25] MEDS ORDERED: METHADONE HCL 40 MG DISPERSABLE TABLET ONE (03:13)
[2016-07-25] MEDS: METHADONE 40 MG, METHADONE 20 MG, METHADONE 5 MG PO SCH (05:58)
[2016-07-25] MEDS: PRENATAL VITAMINS W/ FOLIC ACID TABLET (FP) PO SCH (09:51)
[2016-07-25] MEDS: NICOTINE 21 MG/24 HOURS TOPICAL PATCH TD SCH (09:52)
[2016-07-25] MEDS: ESCITALOPRAM OXALATE 10 MG TABLET (FP) PO SCH (09:52)
[2016-07-25] MEDS: ACETAMINOPHEN 325 MG TABLET (FP) PO PRN (12:05)
[2016-07-25] MEDS: diphenhydrAMINE HCL 50 MG CAPSULE PO SCH (20:21)
[2016-07-25] MEDS: SUVOREXANT 5 MG TABLET PO PRN (21:53)
[2016-07-25] MEDS: THIAMINE HCL 100 MG TABLET (FP) PO SCH (21:53)
[2016-07-26] MEDS ORDERED: METHADONE HCL 5 MG TABLET ONE (03:16)
[2016-07-26] MEDS ORDERED: METHADONE HCL 40 MG DISPERSABLE TABLET ONE (03:17)
[2016-07-26] MEDS ORDERED: METHADONE HCL 10 MG TABLET ONE (03:17)
[2016-07-26] MEDS: METHADONE 40 MG, METHADONE 20 MG, METHADONE 5 MG PO SCH (06:52)
[2016-07-26] MEDS: PRENATAL VITAMINS W/ FOLIC ACID TABLET (FP) PO SCH (10:06)
[2016-07-26] MEDS: NICOTINE 21 MG/24 HOURS TOPICAL PATCH TD SCH (10:06)
[2016-07-26] MEDS: ESCITALOPRAM OXALATE 10 MG TABLET (FP) PO SCH (10:06)
[2016-07-26] MEDS: diphenhydrAMINE HCL 50 MG CAPSULE PO SCH (19:44)
[2016-07-26] MEDS: THIAMINE HCL 100 MG TABLET (FP) PO SCH (21:48)
[2016-07-26] MEDS: SUVOREXANT 5 MG TABLET PO PRN (21:49)
[2016-07-27] MEDS ORDERED: METHADONE HCL 10 MG TABLET ONE (03:14)
[2016-07-27] MEDS ORDERED: METHADONE HCL 5 MG TABLET ONE (03:14)
[2016-07-27] MEDS ORDERED: METHADONE HCL 40 MG DISPERSABLE TABLET ONE (03:15)
[2016-07-27] MEDS: METHADONE 40 MG, METHADONE 20 MG, METHADONE 5 MG PO SCH (06:49)
[2016-07-27] MEDS: ESCITALOPRAM OXALATE 10 MG TABLET (FP) PO SCH (09:57)
[2016-07-27] MEDS: PRENATAL VITAMINS W/ FOLIC ACID TABLET (FP) PO SCH (09:58)
[2016-07-27] MEDS: NICOTINE 21 MG/24 HOURS TOPICAL PATCH TD SCH (09:58)
[2016-07-27] MEDS: diphenhydrAMINE HCL 50 MG CAPSULE PO SCH (20:04)
[2016-07-27] MEDS: SUVOREXANT 5 MG TABLET PO PRN (21:20)
[2016-07-27] MEDS: THIAMINE HCL 100 MG TABLET (FP) PO SCH (21:48)
[2016-07-28] MEDS ORDERED: METHADONE HCL 10 MG TABLET ONE (03:10)
[2016-07-28] MEDS ORDERED: METHADONE HCL 5 MG TABLET ONE (03:10)
[2016-07-28] MEDS ORDERED: METHADONE HCL 40 MG DISPERSABLE TABLET ONE (03:11)
[2016-07-28] MEDS: METHADONE 40 MG, METHADONE 20 MG, METHADONE 5 MG PO SCH (06:29)
[2016-07-28 06:57] VITALS: BP 135/87; PULSE 82; TEMP 98.6
[2016-07-28] MEDS: PRENATAL VITAMINS W/ FOLIC ACID TABLET (FP) PO SCH (10:08)
[2016-07-28] MEDS: ESCITALOPRAM OXALATE 10 MG TABLET (FP) PO SCH (10:08)
[2016-07-28] MEDS: NICOTINE 21 MG/24 HOURS TOPICAL PATCH TD SCH (10:08)
--- NOTE | 2016-07-28 10:19 | PN ---
Psychiatric Progress Note Vital Signs: Vital Signs Period Temp Pulse Resp BP Sys/Dee Pulse Ox Last 24 Hr 98.6 F 82 18-18 135/87 Date of Session: 07/28/16 Chief Complaint:: Discharge visit HPI: PAtient addressed Alcohol,Cocaine and opioid dependence comorbid with Depressive disorder NOS,Bereavement. ROS: HEP C. Current Medications: Active Medications Generic Name Dose Route Start Last Admin Trade Name Freq PRN Reason Stop Dose Admin Acetaminophen 650 mg 07/09/16 15:31 07/25/16 12:05 Tylenol - PO 650 mg Q4H PRN Administration PAIN Al Hydroxide/Mg Hydroxide 30 ml 07/09/16 15:31 Mylanta Oral Suspension - PO Q6H PRN DYSPEPSIA Colloidal Oatmeal 1 applic 07/15/16 12:59 07/16/16 06:32 Aveeno Soap - TP 1 pkt DAILY PRN Administration HYGEINE Diphenhydramine HCl 100 mg 07/24/16 20:00 07/27/16 20:04 Benadryl - PO 100 mg HS@2000 JESS Administration Escitalopram Oxalate 10 mg 07/11/16 10:00 07/28/16 10:08 Lexapro - PO 10 mg DAILY JESS Administration Eucalyptus/Menthol/Phenol/Sorbitol 1 each 07/09/16 15:31 Cepastat Lozenge - MM Q4H PRN SORE THROAT Guaifenesin 10 ml 07/09/16 15:31 Robitussin Dm - PO Q6H PRN COUGH Ibuprofen 400 mg 07/09/16 15:31 07/23/16 12:30 Motrin - PO 400 mg Q6H PRN Administration SEVERE PAIN Loperamide HCl 4 mg 07/09/16 15:31 Imodium - PO Q6H PRN DIARRHEA Magnesium Citrate 300 ml 07/09/16 15:31 Citroma - PO Q48H PRN CONSTIPATION Magnesium Hydroxide 30 ml 07/09/16 15:31 Milk Of Magnesia - PO DAILY PRN CONSTIPATION Methadone HCl 40 mg/ Methadone 65 mg 07/23/16 06:00 07/28/16 06:29 HCl 20 mg/ Methadone HCl 5 mg PO 65 mg DAILY@0600 JESS Administration Nicotine 21 mg 07/10/16 10:00 07/28/16 10:08 Nicoderm Patch - TD Not Given DAILY [facility] Nicotine Polacrilex 4 mg 07/09/16 15:31 Nicorette Gum - BC Q2H PRN NICOTINE REPLACEMENT RX Multivit/Folic Acid/Iron 1 tab 07/10/16 10:00 07/28/16 10:08 Vitamins (Sjr) - PO Not Given DAILY JESS Pseudoephedrine/Triprolidine 1 combo 07/09/16 15:31 07/27/16 14:15 Actifed - PO 1 combo TID PRN Administration NASAL CONGESTION Tetrahydrozoline HCl 1 drop 07/15/16 12:59 07/22/16 09:50 Visine - OU 1 drop BID PRN Administration DRY SKIN Thiamine HCl 100 mg 07/09/16 22:00 07/27/16 21:48 Vitamin B1 - PO 100 mg HS JESS Administration Current Side Effect: No Lab tests ordered: No Lab tests reviewed: Yes Provider note:: Patient completed this program today.He has met his treatment goals and will continue to address his issues on outpatient basis at [facility].Patient continues to find that current medications including [id number] mg po daily,Benadryl 100 mg po hs prn help to reduce his depression, sleeping difficulties. Scripts for 30 days provided.Supportive therapy, psychoeducation has been provided.Coping skills,support utilization to maintain recovery has been discussed as well. Patient is stable for discharge today. Total face to face time:: 30 Mental Status Exam - Mental Status Exam Alert and Oriented to: Time, Place, Person Cognitive Function: Grossly Intact Patient Appearance: Well Groomed Mood: Euthymic Affect: Mood Congruent, Normal Range Patient Behavior: Cooperative Speech Pattern: Clear Voice Loudness: Normal Thought Process: Goal Oriented Thought Disorder: Not Present Hallucinations: Denies Suicidal Ideation: Denies Homicidal Ideation: Denies Insight/Judgement: Fair Sleep: Fair Appetite: Fair Muscle strength/Tone: Normal Gait/Station: Normal Psychiatric Treatment Plan - Problem List (2) Cocaine dependence Qualifiers: Substance use status: uncomplicated Qualified Code(s): F14.20 - Cocaine dependence, uncomplicated (3) Hepatitis C Qualifiers: Viral hepatitis chronicity: chronic Hepatic coma status: without hepatic coma Qualified Code(s): B18.2 - Chronic viral hepatitis C (4) Methadone maintenance therapy patient Comment: received his last dose of methadone today. verification done.
== END 2016-07-28 10:45 | disposition home or self-care (01) | DRG 772 ==
LOC: YASAS 12:10 → Y5N 15:03
PROVIDERS: ADMIT Psychiatry & Neurology Psychiatry; ATTEND Psychiatry & Neurology Psychiatry
PROC: HZ42ZZZ Group Counseling for Substance Abuse Treatment, Cognitive-Behavioral (ICD-10-PCS; principal; 2016-07-28)
DX: F11.20 Opioid dependence, uncomplicated (principal); F14.20 Cocaine dependence, uncomplicated; F34.1 Dysthymic disorder; B18.2 Chronic viral hepatitis C
CPT/HCPCS: 36415; 71020-TC; 80053; 81003; 85027; 86593; 93005; 93010